=== PATIENT | female | born 1985 | race Caucasian/White ===

== ENCOUNTER 2019-06-19 14:50 | Emergency (ER) | payer BC ==
[~2019-06-19] VITALS: Ht 160 cm; Wt 117.9 kg
--- NOTE | 2019-06-19 14:50 | NUR ---
Patient BIBA BLS transferred to bed 5. RN evaluating patient at bedside.
[2019-06-19 14:58] VITALS: BP 111/41
[2019-06-19] MEDS ORDERED: ACETAMINOPHEN EXTRA STRENGTH 500 MG TAB PO ONE (15:15)
[2019-06-19] MEDS ORDERED: IBUPROFEN 600 MG TAB PO ONE (15:15)
--- NOTE | 2019-06-19 15:18 | NUR ---
PT BIB EMS C/O FLU LIKE SYMPTOMS AND WEAKNESS X TODAY. DX WITH BRONCHITIS ON 05/13, TAKING Z PACK. STATES COUGH, BODY ACHES, MIGRAINE, F/C. VOMITING AFTER FORCEFUL COUGHING. PT IS TRANSITIONING FROM FEMALE TO MALE, ON TESTOSTERONE. PATIENT STATES PAIN OF 8/10 AT THIS TIME; VSS; PATIENT POSITIONED FOR COMFORT; HOB ELEVATED; BEDRAILS UP X1; BED DOWN. ER MD MADE AWARE OF PT STATUS.
--- NOTE | 2019-06-19 15:18 | NUR ---
Note undone in EDM - 06/19/19 at 1522 by MED PT BIB EMS C/O FLU LIKE SYMPTOMS AND WEAKNESS X TODAY. DX WITH BRONCHITIS ON 05/13, TAKING Z PACK. STATES COUGH, BODY ACHES, MIGRAINE, F/C. VOMITING AFTER FORCEFUL COUGHING. PT IS TRANSITIONING FROM FEMALE TO MALE, ON TESTOSTERONE. PATIENT STATES PAIN OF 6/10 AT THIS TIME; VSS; PATIENT POSITIONED FOR COMFORT; HOB ELEVATED; BEDRAILS UP X1; BED DOWN. ER MD MADE AWARE OF PT STATUS.
[2019-06-19 16:04] VITALS: BP 103/53
--- NOTE | 2019-06-19 16:04 | NUR ---
Patient discharged with v/s stable by Dr. Covarrubias. Written and verbal after care instructions given and explained. Patient alert, oriented and verbalized understanding of instructions. Ambulatory with steady gait. All questions addressed prior to discharge. ID band removed. Patient advised to follow up with PMD. Rx of Tessalon and Augmentin given. Patient educated on indication of medication including possible reaction and side effects. Opportunity to ask questions provided and answered. Pt has fever of 103F after taking Motrin and TYlenol. Advised pt to drink more water and take off jacket.
== END 2019-06-19 16:04 | disposition home or self-care (01) ==
LOC: MED 14:50
DX: J20.9 Acute bronchitis, unspecified (principal); G89.29 Other chronic pain; G43.909 Migraine, unspecified, not intractable, without status migrainosus; R07.9 Chest pain, unspecified; R11.10 Vomiting, unspecified
CPT/HCPCS: 99283

== ENCOUNTER 2021-03-01 22:55 | Inpatient (IN) | payer BC ==
[~2021-03-01] VITALS: Ht 160 cm; Wt 131.1 kg
[2021-03-01 23:01] VITALS: BP 133/85
--- NOTE | 2021-03-01 23:10 | NUR ---
35 YO F FOREIGN FROM HOME WITH 03/20 CHEST PAIN S/P BREAST REDUCTION ON 02/18. PT STATES PAIN WAS GOING AWAY THEN IT WORSENED YESTERDAY. L SIDE HURTS MORE, PT STATES ITS WORSE IF SHES USES HER L ARM. R SIDE HURTS LESS, ABLE TO MOVE. SURGICAL SITE LOOKS CLEAN. PT STATES SHE HAS UPDATED HER SURGEON ON PAIN AND HE ALSO STATES THE SITE IS FREE OF INFECTION. DRAINS ARE IN PLACE AND DRAINING. HX AND RX DENIED ALLERG: MELOXICAM
[2021-03-02] MEDS ORDERED: AMPICILLIN/SULBACTAM 3 GM in NACL 0.9% 100 ML IV ONE (00:05)
[2021-03-02] MEDS ORDERED: KETOROLAC 30 MG/ML VIAL IVP ONE (00:05)
--- NOTE | 2021-03-02 00:05 | NUR ---
RECHECKED PT'S LEFT BREAST WITH , REDNESS IS PRESENT WELL WARMTH.
[2021-03-02] MEDS ORDERED: AMPICILLIN/SULBACTAM 3 GM VIAL ONE (00:22)
[2021-03-02 00:28] LABS: BASOPHILS # (AUTO) 0.1 K/uL (0.00-0.22); BASOPHILS % (AUTO) 0.4 % (0.0-2.0); EOSINOPHILS % (AUTO) 0.4 % (0.0-4.0); HEMATOCRIT 34.9 % (36-48); HEMOGLOBIN 11.7 g/dL (12.0-16.0); LYMPHOCYTES # (AUTO) 2.4 K/uL (2.5-16.5); LYMPHOCYTES % (AUTO) 17.7 % (20.5-51.1); MEAN CORPUSCULAR HEMOGLOBIN 28 pg (27-31); MEAN CORPUSCULAR HGB CONC 33 g/dL (33-37); MEAN CORPUSCULAR VOLUME 84.8 fL (80-94); MONOCYTES % (AUTO) 7.1 % (1.7-9.3); NEUTROPHILS # (AUTO) 10.2 K/uL (1.8-7.7); NEUTROPHILS % (AUTO) 74.4 % (42.2-75.2); PLATELET COUNT (AUTO) 226 K/uL (140-450); RED BLOOD CELL COUNT(AUTO) 4.12 MIL/uL (4.20-5.40); RED CELL DISTRIBUTION WIDTH 13.8 % (11.6-13.7); WHITE BLOOD COUNT (AUTO) 13.7 K/uL (4.8-10.8)
[2021-03-02] MEDS: NACL 0.9% 1,000 ML IV SCH ×3 (00:40→16:25)
[2021-03-02] MEDS ORDERED: DOCUSATE SODIUM 100 MG GELCAP PO PRN (00:40)
[2021-03-02] MEDS ORDERED: MAGNESIUM OXIDE 400 MG TAB PO PRN (00:40)
[2021-03-02] MEDS ORDERED: POTASSIUM CHLORIDE 10 MEQ TABER PO PRN (00:40)
[2021-03-02] MEDS ORDERED: SODIUM PHOS / POTASSIUM PHOS 1 PKT PDR PO PRN (00:40)
[2021-03-02] MEDS ORDERED: ONDANSETRON 4 MG/2 ML VIAL IM/IVP PRN (00:40)
[2021-03-02] MEDS ORDERED: ALBUTEROL SULFATE/IPRATROPIU 3 ML SOL IH PRN (00:40)
[2021-03-02 00:54] LABS: ALBUMIN 3.7 g/dL (3.4-5.0); ANION GAP 14.8 (8-16); CARBON DIOXIDE 25.6 mmol/L (21-32); CREATININE 0.9 mg/dL (0.6-1.3); POTASSIUM 3.4 mmol/L (3.5-5.1); TOTAL BILIRUBIN 0.9 mg/dL (0.0-1.0)
[2021-03-02 01:16] LABS: MAGNESIUM 1.7 mg/dL (1.8-2.4)
[2021-03-02 01:17] LABS: PHOSPHORUS 3.1 mg/dL (2.5-4.9)
--- NOTE | 2021-03-02 02:08 | NUR ---
pt is resting, equal rise and fall of chest wall. vss. pt in stable conditionn. temp- 98.7, went down from 100.2. all needs met at this time. bed locked in lowest position, side rails x2.
--- NOTE | 2021-03-02 04:08 | NUR ---
pt is resting, equal rise and fall of chest wall. vss. pt in stable condition.
[2021-03-02] MEDS ORDERED: AMPICILLIN/SULBACTAM 1.5 GM VIAL ONE (05:22)
--- NOTE | 2021-03-02 05:45 | NUR ---
pt ambulated to with steady gait and back to bed.
[2021-03-02] MEDS: AMPICILLIN/SULBACTAM 1.5 GM in NACL 0.9% 50 ML IV SCH ×3 (06:02→18:26)
--- NOTE | 2021-03-02 06:06 | NUR ---
pt is awake and alert, sitting up in bed using phone. pt is in stable condition, vss. all needs met at this time.
--- NOTE | 2021-03-02 06:39 | NUR ---
repositioned pt, asked for lights to be turned off. all needs met at this time.
--- NOTE | 2021-03-02 07:35 | NUR ---
report given to pily hodges. transfer of care at this time.
[2021-03-02 08:00] VITALS: BP 146/86
--- NOTE | 2021-03-02 08:01 | NUR ---
PT BROUGHT IN FROM THE ED ON [facility] IN STABLE CONDITION, ALERT AND ORIENTED X4. PT ABLE TO AMBULATE. PT HAS INCISION HEALED FROM BILATERAL BREAST REDUCTION SURGERY ON 02/18/21 AND BILATERAL NIPPLE GRAFT. PT HAS RIGHT AND LEFT CHEST ALYCE DRAINS. LEFT DRAINING PURULENT DRAINAGE. PT REPORTS SEVERE 10/10 PAIN ON LEFT SIDE, WILL MEDICATE PER MD ORDER. PT HAS A LEFT HAND 24 G RUNNING NS @100. IV IS DRY INTACT AND PATENT. PT VITAL SIGNS OBTAINED; PT NOTED TO BE FEBRILE, WILL MEDICATE PER MD ORDER. ALL SAFETY MEASURES IN PLACE, EDUCATION LINEMARKER LIGHT PROVIDED AND PLACED WITHIN REACH. WILL CONTINUE TO MONITOR.
--- NOTE | 2021-03-02 08:16 | NUR ---
Patient will be admitted to care of DR. SELBY. Admited to Med/Surg. Will go to room 102B. Belongings list completed. Report to ODILON.
--- NOTE | 2021-03-02 08:54 | NUR ---
PT HAS BEEN MEDICATED PER MD ORDER FOR FEBRILE AND PAIN. PT EDUCATION PROVIDED, PT TOLERATED ADMINISTRATION. VINEET MEDICATION ADMINISTERED. MRSA SWAB OBTAINED. ALL SAFETY MEASURES IN PLACE, CALL LIGHT WITHIN REACH. WILL CONTINUE TO MONITOR.
[2021-03-02] MEDS: PANTOPRAZOLE 40 MG INJ VIAL IVP SCH (08:56)
[2021-03-02] MEDS: ACETAMINOPHEN 325 MG TAB PO PRN ×2 (08:56→16:25)
[2021-03-02] MEDS: MORPHINE SULFATE 2 MG/ML SYR IVP PRN ×3 (08:56→20:48)
--- NOTE | 2021-03-02 10:21 | NUR ---
ASSISTED PT TO RESTROOM. PT IS STABLE
--- NOTE | 2021-03-02 11:16 | NUR ---
PER PRIMARY RN'S REQUEST TO ASSESS BILATERAL BREAST CELLULITIS. PT. IS AAX4 HX OF SURGICAL INFORMATION PROVIDES BY PT. HX OF BILATERAL BREAST REDUCTION AND NIPPLES GRAFT. PER PT. SURGICAL SURGERY DONE ON 02/18/2021 AND FOLLOW UP WITH SURGEON IN PERSON X1 AND TELEPHONE CALL WITH WOUND PHOTO REVIEW FOLLOW UP. PT. C/O PAIN UNDERNEATH THE BREASTS QUESTION OF INFECTION. BILATERAL DRAIN SITES DRESSING DRY CLEAN INTACT, LEFT DRAIN BAG WITH SMALL AMOUNT PURULENT DRAINAGE. RIGHT DRAIN BAG WITH SMALL AMOUNT BROWN PURULENT DRAINAGE,ALL ABOVE INFORMATION REPORT TO PRIMARY RN. POC DISCUSSED WITH PT. PT. VERBALIZES UNDERSTANDING. POC DISCUSSED WITH PRIMARY RN -BILATERAL BREAST SURGICAL SITES DRY, CLEAN WITH SERI -STRIP IN PLACE, DANILO-WOUND SKIN INTACT, NO ERYTHEMA, NO SWELLING, SKIN TEMP. NORMAL. -BILATERAL NIPPLES GRAFT WOUNDS HEALED, WOUND SITE DRY AND CLEAN, DANILO -NIPPLE SKIN DRY ,CLEAN ANC INTACT, NO ERYTHEMA,NO SWELLING RECOMMENDATIONS: -KEEP BILATERAL BREAST LINE STERI-STRIPS DRY AND CLEAN -APPLY ADAPTIC/OIL EMULSION DRESSING TO BILATERAL NIPPLE AND COVER WITH ISLAND DRESSING BID
--- NOTE | 2021-03-02 11:20 | NUR ---
SPOKE TO DR. SELBY, POC DISCUSSED WITH RECOMMENDATIONS AND WILL FOLLOW UP FOR DRAINS CX AND ULTRASOUND BILATERAL BREASTS.
[2021-03-02] MEDS: NON ADHERENT DRESSING TP SCH (13:00)
--- NOTE | 2021-03-02 13:54 | NUR ---
PRN PAIN MEDICATION ADMINISTERED PER MD ORDER. PT TOLERATED ADMINISTRATION, PT EDUCATION PROVIDED. MD AT BEDSIDE DISCUSSING PLAN OF CARE. IV IS PATENT AND INTACT. CHEST DRAINAGE CULTURE OBTAINED AND SENT TO LAB PER MD ORDER. PT IS STABLE WITH NO ACUTE S/S OF SOB OR DISTRESS. ALL SAFETY MEASURES IN PLACE, CALL LIGHT WITHIN REACH. WILL CONTINUE TO MONITOR.
--- NOTE | 2021-03-02 14:34 | NUR ---
PT IS ASLEEP IN BED WITH CHEST RISING AND FALLING EVEN AND UNLABORED, NO S/S OF SOB. ALL SAFETY MEASURES IN PLACE, CALL LIGHT WITHIN REACH. WILL CONTINUE TO MONITOR.
--- NOTE | 2021-03-02 15:13 | NUR ---
PATIENT HAS BEEN SCREENED AND CATEGORIZED LOW NUTRITION RISK. PATIENT WILL BE SEEN WITHIN 7 DAYS OF ADMISSION. 03/08/[address]
[2021-03-02 16:00] VITALS: BP 136/76
--- NOTE | 2021-03-02 16:34 | NUR ---
PT MEDICATED WITH TYLENOL FOR FEVER, COOLING MEASURES IN PLACE. CALL LIGHT WITHIN REACH. WILL CONTINUE TO MONITOR.
--- NOTE | 2021-03-02 18:26 | NUR ---
VINEET MEDICATION ADMINISTERED PER MD ORDER. PT EDUCATION PROVIDED, PT VERBALIZED UNDERSTANDING. PT REPORTS "FEELING MUCH BETTER". ALL SAFETY MEASURES IN PLACE, CALL LIGHT WITHIN REACH. WILL CONTINUE TO MONITOR.
--- NOTE | 2021-03-02 19:03 | NUR ---
PT WILL BE ENDORSED TO REELING MACHINE SETUP OPERATOR NURSE IN STABLE CONDITION.
[2021-03-02] MEDS ORDERED: VANCOMYCIN PER PHARMACY MC PRN (19:15)
[2021-03-02] MEDS ORDERED: VANCOMYCIN HCL 1,500 MG in DEXTROSE 5% 250 ML IV SCH (20:00)
[2021-03-02] MEDS ORDERED: VANCOMYCIN 1,000 MG VIAL ONE (20:26)
[2021-03-02] MEDS ORDERED: cefTRIAXone 1,000 MG VIAL ONE (22:17)
[2021-03-03 01:32] LABS: BARBITURATE, URINE NEGATIVE ng/ml (NEG <=200); BENZODIAZEPINE, URINE NEGATIVE ng/mL (NEG <=200); CANNABINOID, URINE NEGATIVE ng/mL (NEG <=50); COCAINE, URINE NEGATIVE ng/mL (NEG <=300); OPIATE, URINE POSITIVE ng/mL (NEG <=2000); PHENCYCLIDINE SCREEN,URINE NEGATIVE ng/mL (NEG <=25)
[2021-03-03] MEDS: NON ADHERENT DRESSING TP SCH ×2 (03:02→13:00)
[2021-03-03] MEDS: MORPHINE SULFATE 2 MG/ML SYR IVP PRN ×4 (03:03→22:27)
[2021-03-03] MEDS: HYDROcodone/APAP 5/325 MG 1 TAB TAB PO PRN ×2 (05:46→18:51)
[2021-03-03] MEDS: NACL 0.9% 1,000 ML IV SCH ×2 (05:47→16:52)
--- NOTE | 2021-03-03 07:10 | NUR ---
RECEIVED REPORT FROM OIL FIELD ROUSTABOUT NURSE FOR CONTINUITY OF CARE. PT IS ASLEEP. CHEST RISE AND FALL IS SYMMETRICAL. BREATHING IS UNLABORED ON RA. PT IS AMBULATORY INDEPENDENTLY PER OIL FIELD ROUSTABOUT NURSE. TWO ALYCE DRAINS IN PLACE. SKIN IS WARM AND DRY. SKIN IS NOT INTACT ON THE LEFT CHEST WALL. IV IS IN THE LEFT HAND 24 GAUGE RUNNING NS AT 100 ML/HR. PT IS STABLE. PLAN OF CARE DISCUSSED.
[2021-03-03 07:25] LABS: BASOPHILS % (AUTO) 0.2 % (0.0-2.0); EOSINOPHILS # (AUTO) 0.1 K/uL (0-0.4); EOSINOPHILS % (AUTO) 0.8 % (0.0-4.0); HEMATOCRIT 37.1 % (36-48); HEMOGLOBIN 12.3 g/dL (12.0-16.0); LYMPHOCYTES # (AUTO) 2.4 K/uL (2.5-16.5); LYMPHOCYTES % (AUTO) 15.4 % (20.5-51.1); MEAN CORPUSCULAR HEMOGLOBIN 28 pg (27-31); MEAN CORPUSCULAR HGB CONC 33 g/dL (33-37); MEAN CORPUSCULAR VOLUME 84.6 fL (80-94); MONOCYTES # (AUTO) 0.9 K/uL (0.8-1.0); MONOCYTES % (AUTO) 5.9 % (1.7-9.3); NEUTROPHILS # (AUTO) 12.1 K/uL (1.8-7.7); NEUTROPHILS % (AUTO) 77.7 % (42.2-75.2); PLATELET COUNT (AUTO) 268 K/uL (140-450); RED BLOOD CELL COUNT(AUTO) 4.39 MIL/uL (4.20-5.40); RED CELL DISTRIBUTION WIDTH 13.9 % (11.6-13.7); WHITE BLOOD COUNT (AUTO) 15.6 K/uL (4.8-10.8)
[2021-03-03 08:00] VITALS: BP 112/70
[2021-03-03] MEDS: PANTOPRAZOLE 40 MG INJ VIAL IVP SCH (08:50)
[2021-03-03] MEDS: VANCOMYCIN HCL 1.25 GM in DEXTROSE 5% 250 ML IV SCH ×2 (08:51→22:25)
[2021-03-03 09:02] LABS: ANION GAP 12.8 (8-16); CREATININE 0.8 mg/dL (0.6-1.3); POTASSIUM 3.8 mmol/L (3.5-5.1)
--- NOTE | 2021-03-03 09:06 | NUR ---
PT STATES PAIN AT A SCALE OF 7/10 IN THE CHEST AREA. PT STATES PAIN ACHING IN CHARACTERISTIC. PT WAS GIVEN MORPHINE FOR PAIN IVP. WILL CONTINUE TO MONITOR.
--- NOTE | 2021-03-03 11:30 | NUR ---
PT IS STABLE. SITTING UP AT BEDSIDE. IV IS PATENT AND INTACT. FLUIDS ARE INFUSING ORDERED. PT DENIES PAIN. WILL CONTINUE TO MONITOR.
--- NOTE | 2021-03-03 13:30 | NUR ---
ROUNDED ON PT. IN BED WATCHING TV. ON RA WITH BREATHING UNLABORED. PT DENIES PAIN. DRESSINGS ON CHEST ARE DRY AND INTACT. WILL CONTINUE TO MONITOR.
--- NOTE | 2021-03-03 14:18 | NUR ---
RECEIVED CALL FROM [facility] AND THE PLASTIC SURGEON ASKED TO SPEAK TO SURGEON ON BOARD WITH THIS CASE. DR. ANA MARIA LAMA . WILL INFORM DR. VILLALOBOS.
--- NOTE | 2021-03-03 14:30 | NUR ---
PAGED DR. VILLALOBOS USING EXCHANGE NUMBER TO INFORM HIM THAT DR. LAMA WITH [facility] WANTS TO DISCUSS THE PLAN OF CARE OF THIS PT. WILL WAIT FOR CALL BACK.
--- NOTE | 2021-03-03 15:15 | NUR ---
INFORMED DR. SELBY VERBALLY THAT DR. LAMA AT [facility] WANTED TO SPEAK WITH THE PHYSICIAN TAKING CARE OF THIS PT. GAVE PHONE NUMBER [phone] SELBY. HE STATED HE WOULD CALL THE DOCTOR.
--- NOTE | 2021-03-03 15:30 | NUR ---
PT IS STABLE AT THIS TIME. NO DISTRESS NOTED. AMBULATED TO THE RESTROOM. IV IS INFUSING ORDERED.
--- NOTE | 2021-03-03 15:54 | NUR ---
SPOKE TO REP FROM [facility] AND SHE STATED THAT THE PHYSICIAN HAD NOT YET CALLED HER. PROVIDED THE EXCHANGE NUMBER FOR DR. SELBY.
[2021-03-03 16:00] VITALS: BP 129/88
--- NOTE | 2021-03-03 16:25 | NUR ---
DC PLANNING: CALLED [employer] [place] [phone] SPOKE WITH SHEYLA Montoya PROVIDER ASSISTANCE OF [employer] STATED NO NEED FOR AUTH ER NOTIFICATION IS SUFFICIENT BUT FOR ANY PROCEDURE TO CALL AND GET AUTHORIZATION. I NOTIFIED HIM AWAITING FOR SURGEON AND MIGHT HAVE POSSIBLE I&D. PER DR SELBY NO NEED FOR PROCEDURE .CM TO FOLLOW
--- NOTE | 2021-03-03 16:27 | NUR ---
SPOKE AGAIN TO REP FROM [facility] AND SHE STATES THAT THE PHYSICIAN HAS STILL NOT CALLED HER BACK. INFORMED HER THAT THEY STATED THEY WOULD CALL THEM WHEN THEY GET A CHANCE. PROVIDED EXCHANGE PHONE NUMBER FOR DR. VILLALOBOS.
--- NOTE | 2021-03-03 16:33 | NUR ---
PT STATES SHE HAS PAIN AT A SCALE OF 8/10 IN THE BREAST REGION. PT WAS GIVEN MORPHINE FOR PAIN IVP. BP WAS STABLE PRIOR TO ADMINISTRATION OF MEDICATION, 129/88. WILL CONTINUE TO MONITOR PAIN.
--- NOTE | 2021-03-03 18:51 | NUR ---
PT WAS GIVEN NORCO FOR PAIN IN THE CHEST AREA AT A SCALE OF 6/10. WILL MONITOR PAIN.
--- NOTE | 2021-03-03 19:15 | NUR ---
ENDORSED PT TO AUTOMATIC DISPENSER MECHANIC NURSE FOR CONTINUITY OF CARE. PT IS STABLE AT THIS TIME. PLAN OF CARE DISCUSSED.
--- NOTE | 2021-03-03 23:05 | NUR ---
the pateint vitals are stable. the pateint claims that he has pain , morphine was administered for pain .scheduled medications were given . comfrt and safety measures were provided .
[2021-03-03 23:43] VITALS: BP 131/81
[2021-03-04] MEDS: NON ADHERENT DRESSING TP SCH ×2 (01:09→13:27)
[2021-03-04] MEDS: NACL 0.9% 1,000 ML IV SCH ×3 (02:40→22:40)
--- NOTE | 2021-03-04 07:30 | NUR ---
RECEIVED REPORT FROM SPINDLE SETTER NURSE FOR CONTINUITY OF CARE. PT IS AOX4, ABLE TO MAKE NEEDS KNOWN. BREATHING IS UNLABORED ON RA. SKIN IS WARM, DRY, AND NON-INTACT. TWO ALYCE DRAINS IN PLACE. IV IS IN THE LEFT HAND 24 GAUGE RUNNING NS AT 100 ML/HR. PT IS STABLE. PLAN OF CARE DISCUSSED. SAFETY PRECAUTIONS IN PLACE. CALL LIGHT WITHIN REACH. WILL CONTINUE TO MONITOR.
[2021-03-04 08:00] VITALS: BP 140/70
[2021-03-04] MEDS: PANTOPRAZOLE 40 MG INJ VIAL IVP SCH (08:14)
[2021-03-04] MEDS: MORPHINE SULFATE 2 MG/ML SYR IVP PRN ×2 (08:14→16:05)
--- NOTE | 2021-03-04 08:14 | NUR ---
COMPLAINED OF 7/10 PAIN IN THE LEFT CHEST. ADMINISTERED PRN MEDICATIONS PER MD ORDERED
[2021-03-04] MEDS: HYDROcodone/APAP 5/325 MG 1 TAB TAB PO PRN ×2 (10:13→23:33)
[2021-03-04] MEDS: VANCOMYCIN HCL 1.25 GM in DEXTROSE 5% 250 ML IV SCH (10:13)
--- NOTE | 2021-03-04 10:13 | NUR ---
PT COMPLAINED ABOUT CHEST PAIN 11/18. ADMINISTERED PRN PAIN MEDICATION PER MED ORDER.
[2021-03-04 10:37] LABS: BASOPHILS % (AUTO) 0.4 % (0.0-2.0); EOSINOPHILS # (AUTO) 0.2 K/uL (0-0.4); EOSINOPHILS % (AUTO) 1.7 % (0.0-4.0); HEMATOCRIT 38.8 % (36-48); HEMOGLOBIN 12.9 g/dL (12.0-16.0); LYMPHOCYTES # (AUTO) 1.8 K/uL (2.5-16.5); LYMPHOCYTES % (AUTO) 16.9 % (20.5-51.1); MEAN CORPUSCULAR HEMOGLOBIN 29 pg (27-31); MEAN CORPUSCULAR HGB CONC 33 g/dL (33-37); MEAN CORPUSCULAR VOLUME 85.6 fL (80-94); MONOCYTES # (AUTO) 0.6 K/uL (0.8-1.0); MONOCYTES % (AUTO) 5.5 % (1.7-9.3); NEUTROPHILS % (AUTO) 75.5 % (42.2-75.2); PLATELET COUNT (AUTO) 306 K/uL (140-450); RED BLOOD CELL COUNT(AUTO) 4.53 MIL/uL (4.20-5.40); RED CELL DISTRIBUTION WIDTH 13.6 % (11.6-13.7); WHITE BLOOD COUNT (AUTO) 10.6 K/uL (4.8-10.8)
[2021-03-04 10:38] LABS: ANION GAP 10.4 (8-16); CARBON DIOXIDE 29.8 mmol/L (21-32); CREATININE 0.8 mg/dL (0.6-1.3); POTASSIUM 4.2 mmol/L (3.5-5.1)
--- NOTE | 2021-03-04 12:30 | NUR ---
CHECKED ON PATIENT. PATIENT IS ASLEEP. NOTED CHEST RISE AND FALL. NO DISTRESS NOTED. WILL CONTINUE TO MONITOR.
--- NOTE | 2021-03-04 14:45 | NUR ---
CHECKED ON PATIENT. PATIENT IS STABLE. NO DISTRESS NOTED. WILL CONTINUE TO MONITOR.
[2021-03-04 16:00] VITALS: BP 132/79
--- NOTE | 2021-03-04 16:05 | NUR ---
PATIENT COMPLAINED OF LEFT CHEST PAIN 12/18. ADMINISTERED PRN PAIN MEDICATIONS PER MD ORDERED.
--- NOTE | 2021-03-04 19:00 | NUR ---
PATIENT RECEIVED IN BED ALERT AND ORIENTED X 4. RN DISCUSSED WITH PATIENT MEDICAL PLAN OF CARE, MEDICATION REGIMEN, ONGOING EDUCATION AND FALL AND SAFETY INTERVENTIONS. PATIENT IV FOUND OUT OF PLACEMENT DURING ROUNDING WITH AM RN. ASSET PROTECTION GREETER RN UNABLE TO REINSERT NEW IV FOR SCHEDULED IV MEDICATION VANCOCIN AND ROCEPHIN. FRAME CATCHER INFORMED OF NEED FOR IV INSERTION WARREN FOR 9AM SCHEDULED IV MEDICATIONS. PATIENT VERBALIZED CONCERNS TO ASSET PROTECTION GREETER. PATIENT ONGOING CARE RENDERED. PATIENT VITAL SIGNS WITHIN PARAMETER. NO ACUTE DISTRESS NOTED. PATIENT RECEPTIVE TO RN INSTRUCTIONS AND PLAN OF CARE.
--- NOTE | 2021-03-04 19:30 | NUR ---
ENDORSED TO FINISHER FINE DIAMOND DIES NURSE FOR CONTINUITY OF CARE. PT IS STABLE.
[2021-03-04] MEDS: VANCOMYCIN 1,500 MG in DEXTROSE 5% 500 ML IV SCH (21:00)
--- NOTE | 2021-03-04 22:30 | NUR ---
MESSAGED DR. BRANDT REGARDING RN, CHARGE NURSE AND SIGN SHOP SUPERVISOR UNABLE TO START PATIENT IV AFTER MULTIPLE ATTEMPTS. PATIENT SCHEDULED FOR IV ROCEPHIN AND VANCOMYCIN. PATIENT ALERT AND ORIENTED X 4. AFEBRILE. VITAL SIGNS WITHIN PARAMETER. RN AWAITING PHYSICIAN INSTRUCTIONS FOR PATIENT CARE.
[2021-03-04] MEDS ORDERED: cephALEXin 500 MG CAP PO ONE (23:00)
--- NOTE | 2021-03-04 23:00 | NUR ---
ORDERS RECEIVED PER JUAN ANTONIO DENG TO HOLD IV MEDICATION AT THIS TIME. NEW ORDER FOR KEFLEX 500MG PO X 1 NOW, AND THAT HE WOULD EVALUATE THE PATIENT IN THE AM. SHORT ORDER COOK INFORMED OF DR. SELBY ORDERS AND INSTRUCTION. RN TO CONTINUE WITH PATIENT MEDICAL PLAN OF CARE. PATIENT VITAL SIGNS WITHIN PARAMETER.
[2021-03-04] MEDS ORDERED: cephALEXin 500 MG CAP PO SCH (23:20)
--- NOTE | 2021-03-04 23:35 | NUR ---
DUE PO KEFLEX ONE TIME DOSE ADMINISTERED, MEDICATED PRN FOR PAIN WITH NORCO PO, SNACK PROVIDED PER REQUEST, TOLERATED WELL, MONITORED CLOSELY.
[2021-03-05] VITALS: BP 136/72
[2021-03-05] MEDS: NON ADHERENT DRESSING TP SCH (01:00)
[2021-03-05 06:48] LABS: BASOPHILS % (AUTO) 0.4 % (0.0-2.0); EOSINOPHILS # (AUTO) 0.3 K/uL (0-0.4); HEMATOCRIT 36.8 % (36-48); HEMOGLOBIN 12.4 g/dL (12.0-16.0); LYMPHOCYTES # (AUTO) 2.9 K/uL (2.5-16.5); LYMPHOCYTES % (AUTO) 29.9 % (20.5-51.1); MEAN CORPUSCULAR HEMOGLOBIN 29 pg (27-31); MEAN CORPUSCULAR HGB CONC 34 g/dL (33-37); MEAN CORPUSCULAR VOLUME 84.8 fL (80-94); MONOCYTES # (AUTO) 0.6 K/uL (0.8-1.0); MONOCYTES % (AUTO) 6.5 % (1.7-9.3); NEUTROPHILS # (AUTO) 5.9 K/uL (1.8-7.7); NEUTROPHILS % (AUTO) 60.2 % (42.2-75.2); PLATELET COUNT (AUTO) 309 K/uL (140-450); RED BLOOD CELL COUNT(AUTO) 4.35 MIL/uL (4.20-5.40); RED CELL DISTRIBUTION WIDTH 13.6 % (11.6-13.7); WHITE BLOOD COUNT (AUTO) 9.8 K/uL (4.8-10.8)
--- NOTE | 2021-03-05 07:05 | NUR ---
RECEIVED CHANGE OF SHIFT REPORT FROM NIGHT NURSE AT BEDSIDE FOR CONTINUITY OF CARE. REVIEWED AND WILL CONTINUE WITH POC. PT ASLEEP DURING BEDSIDE REPORT. NURSE STATES PT IS AA&OX4 AND AMBULATORY WHEN AWAKE. PT IS ON RA WITH NORMAL, UNLABORED BREATHING. PT HAS LEFT SURGICAL DRESSING DUE TO BREAST REDUCTION SURGERY. PT HAS [address] DRAINING BOTH BREASTS. PT DOES NOT HAVE IV ACCESS, MD AWARE. WILL CONTINUE TO MONITOR.
[2021-03-05 07:16] LABS: ANION GAP 12.4 (8-16); CARBON DIOXIDE 28.7 mmol/L (21-32); POTASSIUM 4.1 mmol/L (3.5-5.1)
[2021-03-05 08:00] VITALS: BP 116/77
[2021-03-05] MEDS: NACL 0.9% 1,000 ML IV SCH (08:40)
[2021-03-05] MEDS: PANTOPRAZOLE 40 MG INJ VIAL IVP SCH (09:00)
[2021-03-05] MEDS ORDERED: levoFLOXacin 750 MG TAB PO SCH (09:00)
[2021-03-05] MEDS: VANCOMYCIN 1,500 MG in DEXTROSE 5% 500 ML IV SCH (09:00)
[2021-03-05] MEDS: HYDROcodone/APAP 5/325 MG 1 TAB TAB PO PRN (09:26)
--- NOTE | 2021-03-05 09:26 | NUR ---
ADMINISTERED SCHEDULED MEDICATIONS. ALSO ADMINISTERED NORCO PRN FOR PAIN 5/10. PT STATES PAIN IS IN THE LEFT CHEST WHERE DRAIN IS PLACED. PT TOLERATED MEDS WELL. EMPTIED ALYCE DRAINS. R-CHEST ALYCE DRAIN EMPTIED 7.5ML OUT AND L-CHEST EMPTIED 30ML OUT.
[2021-03-05 10:13] VITALS: BP 116/77
[2021-03-05] MEDS ORDERED: CEPH250C16 PO (10:29)
[2021-03-05] MEDS ORDERED: LEVO750T51 PO (10:29)
[2021-03-05] MEDS ORDERED: HYDR-5080 PO (10:31)
--- NOTE | 2021-03-05 11:45 | NUR ---
PT SIGNED DISCHARGE PAPERWORK. PT VERBALIZED UNDERSTANDING OF DISCHARGE TEACHING. TOOK WOUND PICTURES UPON DISCHARGE AND TOOK OFF PT ID BAND. TAKE WAS TAKEN OUT VIA WHEELCHAIR. PT STABLE UPON DISCHARGE.
== END 2021-03-05 12:58 | disposition home or self-care (01) | DRG 603 ==
LOC: MED 22:55 → MTU 03-02 00:27 → MMU 03-02 05:52
PROVIDERS: ADMIT Hospitalist; ATTEND Hospitalist
DX: L03.313 Cellulitis of chest wall (principal); Z68.43 Body mass index [BMI] 50.0-59.9, adult; F64.9 Gender identity disorder, unspecified; Z60.2 Problems related to living alone; E66.9 Obesity, unspecified; Z88.8 Allergy status to other drugs, medicaments and biological substances
CPT/HCPCS: 36415; 71045; 76641; 80048; 80053; 80202; 80305; 81025; 83605; 83735; 84100; 85025; 87040; 87070; 87075; 87081; 87186; 87205; 96365; 96375; 99285; A4649; C9113; J0295; J0696; J1885; J2270; J3370; J7060; Q0092

== ENCOUNTER 2021-10-26 03:30 | Emergency (ER) | payer SELFPAY ==
[~2021-10-26] VITALS: Ht 160 cm; Wt 127.0 kg
[~2021-10-26 03:30] MED LIST: CEPH250C16 PO; HYDR-5080 PO; LEVO750T51 PO
[2021-10-26 03:37] VITALS: BP 153/79
--- NOTE | 2021-10-26 03:37 | NUR ---
patient taken to bed 11
--- NOTE | 2021-10-26 03:48 | NUR ---
36 YO/F BIBA FROM HOME W C/P HEADACHE PRESSURE/ SHARP X19 HOURS CONSTANT 5/10 WHEN STAYING STILL 10/10 WHEN MOVING, + LIGHT SENSITIVITY, + NECK PAIN, + CHILLS, + NAUSEA, + BODYACHES, +BLURRY VISION AND DIZZYNESS. PT DENIES ANY FEVERS, V/D. PT TOOK NYQUIL AT 1630 W/O RELIEF. PT LAYING IN BED LOCKED IN LOWEST POSITION W X2 SIDERAILS UP FOR PT SAFETY. BREATHING EVEN AND UNLABORED. WILL CONTINUE TO MONITOR. PMH: MIGRAINES ALLERGIES: MELOXICAM
[2021-10-26] MEDS ORDERED: KETOROLAC 60 MG/2 ML VIAL IM ONE (03:50)
--- NOTE | 2021-10-26 03:58 | NUR ---
pt unable to provide urine d/t headache worsening upon movement . pt reports "I am on testosterone and it puts me in menopause." educated pt on toradol contraindications during pt denies and wants the toradol.
--- NOTE | 2021-10-26 04:02 | NUR ---
PT PREFERS NAME OF [facility].
--- NOTE | 2021-10-26 04:48 | NUR ---
PT APPEARS TO BE RESTING W EYES CLOSED IN SUPINE POSITION. BREATHING EVEN AND UNLABORED. WILL CONTINEU TO MONTIOR.
--- NOTE | 2021-10-26 05:06 | NUR ---
PT REPORTS PAIN IS ONGOING BUT HAS IMPROVED AND WAS ABLE TO SLEEP.
[2021-10-26] MEDS ORDERED: NAPR-54 PO (05:23)
[2021-10-26 05:25] VITALS: BP 115/67
--- NOTE | 2021-10-26 05:25 | NUR ---
Patient discharged with v/s stable. Written and verbal after care instructions given and explained. Patient alert, oriented and verbalized understanding of instructions. Ambulatory with steady gait. All questions addressed prior to discharge. ID band removed. Patient advised to follow up with PMD. Rx of NAPROXEN given. Patient educated on indication of medication including possible reaction and side effects. Opportunity to ask questions provided and answered. D/C COMPLETED BY LUANA MATA.
== END 2021-10-26 05:25 | disposition home or self-care (01) ==
LOC: MED 03:30
DX: G43.909 Migraine, unspecified, not intractable, without status migrainosus (principal); M54.2 Cervicalgia; Z79.891 Long term (current) use of opiate analgesic; Z79.1 Long term (current) use of non-steroidal anti-inflammatories (NSAID); Z79.2 Long term (current) use of antibiotics; Z88.6 Allergy status to analgesic agent
CPT/HCPCS: 93005; 96372; 99283; J1885

== ENCOUNTER 2022-01-10 17:00 | Emergency (ER) | payer SELFPAY ==
[~2022-01-10] VITALS: Ht 160 cm; Wt 124.7 kg
[~2022-01-10 17:00] MED LIST changes: +NAPR-54 PO
[2022-01-10 17:33] VITALS: BP 116/75
[2022-01-10] MEDS ORDERED: CEPH500C16 PO (18:04)
--- NOTE | 2022-01-10 18:10 | NUR ---
Patient discharged with v/s stable. Written and verbal after care instructions given FOR CELLULITIS and explained. Patient alert, oriented and verbalized understanding of instructions. Ambulatory with steady gait. All questions addressed prior to discharge. ID band removed. Patient advised to follow up with PMD. Rx of KEFLEX given. Patient educated on indication of medication including possible reaction and side effects. Opportunity to ask questions provided and answered.
== END 2022-01-10 18:10 | disposition home or self-care (01) ==
LOC: EEVIPCON 17:00 → MED 17:00
DX: L03.113 Cellulitis of right upper limb (principal); Z88.1 Allergy status to other antibiotic agents; Z79.899 Other long term (current) drug therapy; Z98.890 Other specified postprocedural states
CPT/HCPCS: 99283

== ENCOUNTER 2022-04-06 12:29 | Emergency (ER) | payer SELFPAY ==
[~2022-04-06] VITALS: Ht 162.6 cm; Wt 99.8 kg
[~2022-04-06 12:29] MED LIST changes: +CEPH500C16 PO; -LEVO750T51 PO; +LEVO750T75 PO
[2022-04-06 12:45] VITALS: BP 121/73
--- NOTE | 2022-04-06 14:12 | NUR ---
PT WAS W/C'D TO ROOM4 WITH CO FOOT PAIN. NO FURTHER CO.
[2022-04-06 14:24] LABS: BASOPHILS # (AUTO) 0.1 K/uL (0.00-0.22); BASOPHILS % (AUTO) 1.3 % (0.0-2.0); EOSINOPHILS # (AUTO) 0.1 K/uL (0-0.4); EOSINOPHILS % (AUTO) 1.3 % (0.0-4.0); HEMATOCRIT 44.6 % (36-48); LYMPHOCYTES # (AUTO) 2.9 K/uL (2.5-16.5); MEAN CORPUSCULAR HEMOGLOBIN 28 pg (27-31); MEAN CORPUSCULAR HGB CONC 34 g/dL (33-37); MEAN CORPUSCULAR VOLUME 83.9 fL (80-94); MONOCYTES # (AUTO) 0.4 K/uL (0.8-1.0); MONOCYTES % (AUTO) 3.8 % (1.7-9.3); NEUTROPHILS # (AUTO) 6.8 K/uL (1.8-7.7); NEUTROPHILS % (AUTO) 65.6 % (42.2-75.2); PLATELET COUNT (AUTO) 279 K/uL (140-450); RED BLOOD CELL COUNT(AUTO) 5.31 MIL/uL (4.20-5.40); RED CELL DISTRIBUTION WIDTH 13.7 % (11.6-13.7); WHITE BLOOD COUNT (AUTO) 10.3 K/uL (4.8-10.8)
[2022-04-06 14:47] LABS: ANION GAP 12.3 (8-16); CARBON DIOXIDE 28.3 mmol/L (21-32); POTASSIUM 3.6 mmol/L (3.5-5.1)
[2022-04-06] MEDS ORDERED: NAPR-54 PO (15:23)
--- NOTE | 2022-04-06 15:43 | NUR ---
Patient discharged with v/s stable. Written and verbal after care instructions given and explained. Patient alert, oriented and verbalized understanding of instructions. Ambulatory with steady gait. All questions addressed prior to discharge. ID band removed. Patient advised to follow up with PMD. Rx of NAPRAXEN given. Patient educated on indication of medication including possible reaction and side effects. Opportunity to ask questions provided and answered.
[2022-04-06 15:45] VITALS: BP 134/75
== END 2022-04-06 15:43 | disposition home or self-care (01) ==
LOC: EEVIPCON 12:29 → MED 12:29
DX: M10.072 Idiopathic gout, left ankle and foot (principal); E79.0 Hyperuricemia without signs of inflammatory arthritis and tophaceous disease; M76.892 Other specified enthesopathies of left lower limb, excluding foot; R79.82 Elevated C-reactive protein (CRP); Z79.899 Other long term (current) drug therapy; Z88.8 Allergy status to other drugs, medicaments and biological substances
CPT/HCPCS: 36415; 73610; 73630; 80048; 84550; 85025; 85651; 86140; 99284

== ENCOUNTER 2022-10-21 13:38 | Emergency (ER) | payer SELFPAY ==
[~2022-10-21] VITALS: Ht 157.5 cm; Wt 85.7 kg
[2022-10-21 14:09] VITALS: BP 134/75
--- NOTE | 2022-10-21 14:12 | NUR ---
AMBULATED TO BED IN NO DISTRESS.
--- NOTE | 2022-10-21 14:12 | NUR ---
The patient's care was reviewed and supervised by LAURITA GARCIA RN.
[2022-10-21] MEDS ORDERED: HYDROcodone/APAP 5/325 MG 1 TAB TAB PO ONE (14:35)
[2022-10-21] MEDS ORDERED: KETOROLAC 30 MG/ML VIAL IM ONE (14:35)
[2022-10-21] MEDS ORDERED: predniSONE 20 MG TAB PO ONE (14:35)
[2022-10-21] MEDS ORDERED: IBUP-2213 PO (14:45)
[2022-10-21] MEDS ORDERED: ACET-8905 PO (14:45)
--- NOTE | 2022-10-21 14:45 | NUR ---
alie wrap x 1 to r foot + cms
[2022-10-21] MEDS ORDERED: PRED20TA5 PO (15:46)
[2022-10-21 16:18] VITALS: BP 132/80
--- NOTE | 2022-10-21 16:18 | NUR ---
Patient discharged with v/s stable. Written and verbal after care instructions given. Patient alert, oriented and verbalized understanding of instructions. Ambulatory with steady gait. All questions addressed prior to discharge. ID band removed. Patient advised to follow up with PMD. Rx of HYDROCODONE-ACETAMINOPHEN, IBUPROFEN AND PREDNISONE given. Opportunity to ask questions provided and answered. WORK NOTE HANDED TO PATIENT.
== END 2022-10-21 16:18 | disposition home or self-care (01) ==
LOC: MED 13:38
DX: M25.571 Pain in right ankle and joints of right foot (principal); M10.9 Gout, unspecified; Z88.8 Allergy status to other drugs, medicaments and biological substances; Z79.899 Other long term (current) drug therapy
CPT/HCPCS: 81025; 96372; 99283; J1885; J7512

== ENCOUNTER 2023-03-14 20:29 | Emergency (ER) | payer SELFPAY ==
[~2023-03-14] VITALS: Ht 160 cm; Wt 127.0 kg
[~2023-03-14 20:29] MED LIST changes: +ACET-8905 PO; +IBUP-2213 PO; +PRED20TA5 PO
[2023-03-14 20:39] VITALS: BP 145/86; PULSE 101; RESP 24; TEMP 97.3; O2SAT 100
[2023-03-14 23:23] VITALS: TEMP 98.6
[2023-03-15] MEDS ORDERED: ACETAMINOPHEN EXTRA STRENGTH 500 MG TAB PO ONE (00:05)
[2023-03-15] MEDS ORDERED: KETOROLAC 30 MG/ML VIAL IM ONE (00:05)
[2023-03-15] MEDS ORDERED: oxyCODONE 10 MG TABER PO ONE (00:20)
[2023-03-15] MEDS ORDERED: ONDANSETRON 4 MG ODT PO ONE (00:20)
[2023-03-15 01:05] VITALS: O2SAT 100
[2023-03-15] MEDS ORDERED: BACI-418 TP (01:25)
[2023-03-15 01:52] VITALS: BP 134/75; PULSE 88; RESP 15; O2SAT 98
== END 2023-03-15 01:41 | disposition home or self-care (01) ==
LOC: EDSEX 20:29 → MED 20:29
DX: S93.492A Sprain of other ligament of left ankle, initial encounter (principal); Z88.8 Allergy status to other drugs, medicaments and biological substances; Z79.899 Other long term (current) drug therapy; X58.XXXA Exposure to other specified factors, initial encounter; Y93.89 Activity, other specified; Y92.89 Other specified places as the place of occurrence of the external cause; Y99.8 Other external cause status
CPT/HCPCS: 73590; 73610; 96372; 99284; J1885; Q0162

== ENCOUNTER 2023-04-04 12:28 | Emergency (ER) | payer SELFPAY ==
[~2023-04-04] VITALS: Ht 160 cm; Wt 118.4 kg
[2023-04-04 12:39] VITALS: BP 132/79; PULSE 128; RESP 20; TEMP 99; O2SAT 98
[2023-04-04] MEDS ORDERED: ONDANSETRON 4 MG/2 ML VIAL IVP ONE (14:05)
[2023-04-04] MEDS ORDERED: ACETAMINOPHEN EXTRA STRENGTH 500 MG TAB PO ONE (14:05)
[2023-04-04 14:35] VITALS: O2SAT 98
[2023-04-04] MEDS: NACL 0.9% 1,000 ML IV SCH ×2 (14:41→14:45)
[2023-04-04 14:42] LABS: FLU A ANTIGEN negative (NEGATIVE)
[2023-04-04 14:43] LABS: FLU B ANTIGEN NEGATIVE (NEGATIVE)
[2023-04-04 15:01] LABS: BASOPHILS # (AUTO) 0.1 K/uL (0.00-0.22); BASOPHILS % (AUTO) 0.9 % (0.0-2.0); EOSINOPHILS % (AUTO) 0.1 % (0.0-4.0); HEMOGLOBIN 14.5 g/dL (12.0-18.0); LYMPHOCYTES # (AUTO) 1.6 K/uL (2.0-11.5); LYMPHOCYTES % (AUTO) 10.6 % (20.5-51.1); MEAN CORPUSCULAR HEMOGLOBIN 28 pg (27-31); MEAN CORPUSCULAR HGB CONC 34 g/dL (33-37); MEAN CORPUSCULAR VOLUME 82.4 fL (80-94); MONOCYTES # (AUTO) 1.1 K/uL (0.8-1.0); MONOCYTES % (AUTO) 6.9 % (1.7-9.3); NEUTROPHILS # (AUTO) 12.6 K/uL (1.8-7.7); NEUTROPHILS % (AUTO) 81.5 % (42.2-75.2); PLATELET COUNT (AUTO) 313 K/uL (140-450); WHITE BLOOD COUNT (AUTO) 15.5 K/uL (4.8-10.8)
[2023-04-04 15:21] LABS: ALANINE AMINOTRANSFERASE 16 U/L (12-78); ALBUMIN 3.7 g/dL (3.4-5.0); ALKALINE PHOSPHATASE 68 U/L (50-136); ANION GAP 17.5 (8-16); ASPARTATE AMINOTRANSFERASE 25 U/L (15-37); CALCIUM 9.1 mg/dL (8.5-10.1); CARBON DIOXIDE 20.8 mmol/L (21-32); CHLORIDE 102 mmol/L (98-107); CREATININE 0.8 mg/dL (0.6-1.3); GFR ARICAN-AMERICAN 141 mL/min (>90); GFR NON ARICAN-AMERICAN 116 mL/min (>90); GLUCOSE 102 mg/dL (74-106); SODIUM SERUM 136 mmol/L (136-145); TOTAL BILIRUBIN 0.9 mg/dL (0.0-1.0); UREA NITROGEN, BLOOD 11 mg/dL (7-18)
[2023-04-04 15:23] LABS: LACTIC ACID 1.4 mmol/L (0.4-2.0); POTASSIUM 4.3 mmol/L (3.5-5.1)
[2023-04-04 16:40] LABS: APPEARANCE,URINE HAZY (CLEAR); BILIRUBIN,URINE NEGATIVE (NEGATIVE); BLOOD, URINE TRACE-I (NEGATIVE); COLOR,URINE YELLOW (YELLOW); LEUKOCYTE ESTERASE ,URINE TRACE (NEGATIVE); NITRITE, URINE POSITIVE (NEGATIVE); PROTEIN,URINE NEGATIVE (NEGATIVE); UGLUCOSE NEGATIVE (NEGATIVE); UROBILINOGEN,URINE 0.2 EU/dL (0.2 - 1)
[2023-04-04 16:44] VITALS: O2SAT 97
[2023-04-04 16:45] LABS: BACTERIA,URINE >30 (MANY) /HPF (None Seen); RBC,URINE 0-5 /HPF (0-5); SQUAMOUS EPITHELIAL CELL,UR 4-10 (MOD) /LPF (0-3 (FEW))
[2023-04-04] MEDS ORDERED: NACL 0.9% 1,000 ML IV ONE (17:25)
[2023-04-04] MEDS ORDERED: cefTRIAXone 1,000 MG VIAL ONE (17:36)
[2023-04-04] MEDS ORDERED: CIPR500T9 PO (19:52)
[2023-04-04] MEDS ORDERED: ACET-10509 PO (20:08)
[2023-04-04 20:25] LABS: INR 1.04 (0.8-1.2); PARTIAL THROMBOPLASTIN TIME 26.2 secs (22-35.6); PROTHROMBIN TIME 10.9 secs (10.8-13.4)
[2023-04-04] MEDS ORDERED: KETOROLAC 30 MG/ML VIAL IVP ONE (20:40)
[2023-04-04 21:23] VITALS: BP 114/63; PULSE 94; RESP 20; TEMP 99.6; O2SAT 98
== END 2023-04-04 21:23 | disposition home or self-care (01) ==
LOC: MED 12:28
DX: N39.0 Urinary tract infection, site not specified (principal); R07.89 Other chest pain; Z20.822 Contact with and (suspected) exposure to COVID-19; Z98.890 Other specified postprocedural states; Z79.899 Other long term (current) drug therapy; Z79.2 Long term (current) use of antibiotics; Z79.1 Long term (current) use of non-steroidal anti-inflammatories (NSAID); Z88.6 Allergy status to analgesic agent
CPT/HCPCS: 36415; 71046; 71275; 80053; 81001; 83605; 83880; 84484; 85025; 85379; 85610; 85730; 87086; 87426; 87491; 87804; 93005; 96361; 96365; 96375; 99285; J0696; J1885; J2405; J7030; Q9967